=== PATIENT | male | born 1965 | race Caucasian/White ===

== ENCOUNTER 2018-09-18 08:30 | Inpatient (IN) ==
[~2018-09-18 08:30] MED LIST: Bupivacaine/Epinephrine PF Inj 0.5% 30 ML Vial ONE; Gelatin Size 100 Topical Foam ONE; Thrombin Topical Soln 5,000 UNIT Vial TOPICAL ONE; ceFAZolin 2 GM Premix Inj 2 GM/50 ML PIGGYBACK IV.SIG ONE
[2018-09-18] MEDS ORDERED: Chlorhexidine Gluconate 2% 1 Pack (2 Cloths) TOPICAL SCH (11:57)
[2018-09-18] MEDS ORDERED: Metoprolol Tartrate 25 MG Tablet PO SCH (11:57)
[2018-09-18] MEDS ORDERED: Vancomycin Inj 1,000 MG in Sodium Chlor 0.9% Inj 250 ML IV.SIG SCH (12:00)
[2018-09-18] MEDS ORDERED: Sodium Chlor 0.9% Inj 500 ML IV.SIG SCH (12:00)
[2018-09-18] MEDS ORDERED: SUFentanil Inj 250 MCG/5 ML Ampul ONE (12:06)
[2018-09-18] MEDS ORDERED: Propofol Inj 500 MG/50 ML Vial ONE (12:07)
[2018-09-18] MEDS ORDERED: fentaNYL Citrate Inj 250 MCG/5 ML Ampul ONE (12:32)
[2018-09-18] MEDS ORDERED: Dexmedetomidine Inj 200 MCG/2 ML Vial ONE (12:32)
[2018-09-18] MEDS ORDERED: HYDROmorphone PF Inj 2 MG/ML Vial ONE (12:32)
[2018-09-18] MEDS ORDERED: Artificial Tears Opth Oint 3.5 GM Tube ONE (12:32)
[2018-09-18] MEDS: Sod Chloride 0.9% Inj 1,000 ML IV.SIG SCH (12:34)
[2018-09-18] MEDS ORDERED: Bisacodyl 10 MG Supp RECTAL PRN (17:54)
[2018-09-18] MEDS ORDERED: Morphine Inj 4 MG/ML Vial IV.PUSH PRN (17:54)
[2018-09-18] MEDS ORDERED: Menthol 5.8 MG Lozenge BUCCAL PRN (17:54)
[2018-09-18] MEDS ORDERED: Naloxone Inj 0.4 MG/ML Vial IV.PUSH PRN (17:57)
--- NOTE | 2018-09-18 18:30 | P.OP ---
Preoperative Diagnosis: Lumbar degenerative disk disease with secondary spinal stenosis Postoperative Diagnosis: Lumbar degenerative disk disease with secondary spinal stenosis Date of procedure: 09/18/18 Procedure: L3-4, L4-L5 laminectomy, interbody arthrodhesis using PEEK cage and autologous bone graft, L3-4, L4-L5 instrumental fixation using transpedicular screws and rods, L3-4, L4-L5 posterolateral fusion using autologous bone graft and demineralized bone matrix. Microsurgical dissection Anesthesia: GETA Surgeon: Gio Donohue MD Pathology: none sent Operation and Findings: INDICATIONS FOR THE SURGICAL PROCEDURE Mr Resendez is a 53 year-old male who presented with intractable mechanical back pain and del evidence of L4 and L5 lower extremity radiculopathy. He failed maximum nonsurgical management including multiple modalities of conservative treatment as well as pain management interventions by an interventional pain specialist. A surgical decompression and arthrodhesis were indicated as a last resort. The [id number] details of the procedure, indications, alternatives, risks and potential complications were fully discussed with the patient. The patient fully understood. All the questions were answered. No guarantees were given. He voiced requesting the procedure and provided informed consents. He was offered the alternative of delaying the procedure and continuing with nonsurgical management. DETAILS OF THE SURGICAL PROCEDURE Prior to the procedure, the procedure, risks, and potential complications revisited with the patient. Placement of electrodes for intraoperative neurophysiological monitoring was completed. The patient was taken to the operative room, and following induction of general anesthesia, endotracheal intubation was performed. A De León catheter, bilateral JO ANN hose and sequential compression devices were placed and kept throughout the procedure. The patient was positioned prone, over a Johnny table over a bolsters. All pressure in the preoperative surgical holding room points were carefully padded with eggcrate and gel mattress. The eyes were tapped shut after ointment was applied by the anesthesiologist to prevent corneal abrasion. A Denisse hugger was placed over the expossed lower body to maintain control of the core body temperature. The electrophysiological team placed the needles and electrodes in their proper location and baseline SSEP's and motor evoked potentials were registered. The entrance to each pedicles was marked using a C arm. The lumbar region was prepped and draped in the usual sterile fashion. The surgical procedure was performed in several steps as follow: SURGICAL APPROACH Once the patient was positioned, a localizing cross-table lateral and AP x-ray was performed with a C-arm. Two paramedian small incisions were outlined on the skin approximately 3cm from the midline. The skin incisions were made with a # 10 blade. Small bleeders were controlled with the cautery. The dissection was then carried out into deeper planes and through the thoracolumbar fascia with a Bovie. The intermuscular septum was identified and the muscles were blunted dissected along the septum. The facets and transverse process of L3-4, L4,5 were exposed and the proper anatomical landmarks were identidied. A microsurgical self-retaining retractor was placed on the incision, and a localizing lateralizing cross-table x-ray was performed with an instrument underneath a lamina of the lumbar spine. INSTRUMENTAL FIXATION At this point in the procedure, placement of bilateral transpedicular screws was necessary for stabilization of the spine. Initially, the entry point for the screw was selected anatomically at the junction of the facet, with the transverse process, and the pars interarticularis at L3-4, L4,5. This was started with a Giamshetti needle, followed by the use of K wire. A tap was used to create the threads for the screws. Finally bilateral transpedicular screws were carefully placed bilaterally at L3, L4, and L5 under fluoroscopic visualization. An appropriate purchase was achieved with all screws. The position of each screw was assessed anatomically with an AP, lateral, oblique Xrays. An intraoperative scan view of the spine was then performed using the iso -centric c-arm. Each screw was then assessed electrophysiologically stimulating each screw with a nerve stimulator. SURGICAL DECOMPRESSION There was significant mass effect with compression of the neural structures. In order to relieve neural compression, it was necessary to perform a decompressive laminectomy, with decompression of the spinal canal and bilateral lateral recesses. Note that the scope of such decompression was significantly more extensive than the minimal exposure necessary to perform an interbody fusion, as there was extreme facet arthropathy with severe degeneration of the disk spaces and stenosis cause by the hyperthrophic joint facets. At this point of the procedure the operative microscope was draped in the usual sterile fashion and brought to the field. The rest of the surgical procedure was performed using microdissection technique with the exception of the closure. Under the operating microscope, a decompressive laminectomy was carried out at L3-4, L4,5 on the left side as follow: The laminae, base of the spinous processes and facets were carefully drilled exposing the ligamentum flavum. The facets were abnormal with severe spondylolisthesis and gross mechanical instability. A large disk protusion was compressing the neural structures and exiting nerve roots. A near complete facetectomy was necessary resulting in further mechanical instability. The ligamentum flavum appeared hypertrophic, resulting on mass effect on the dorsal surface of the neural structures. The superior free border of the ligamentum flavum was elevated with a ligament dissector and the ligamentum flavum was removed with a 3 and 4 mm Kerrison forceps. The ligament was very adherent to the dural sac and during the dissection, ans extreme care was taken during the dissection. The exiting nerve roots were identified, and a wide foraminotomy was performed with a Kerrison in their trajectory towards the neural foramen. Epidural veins located laterally to the dural sac were coagulated with the bipolar cautery, and then incised using microscissors. Gentle medial retraction of the dural sac allowed me to expose the disc space for the discectomy. Upon completion of the discectomy, an excellent decompression of the neural structures was achieved. Increased motion was noted thorough the procedure, which was consistent with mechanical instability at L3-4, L4,5. INTERBODY ARTHRODHESIS In order to correct the narrowing of the disk space and maintain distraction of the space, and to achieve a solid interbody fusion, it was necessary the insertion of an interbody device into the disk space. Otherwise, the disk space would collapse, compromising the result of the surgical procedure. At this point of the procedure, the annulus fibrosus of the disk was carefully coagulated with a bipolar cautery and incised using an 11 bladed knife. Then, a microdiscectomy was carried out in a standard fashion using a combination of straight and up-biting pituitary forceps. A reverse angle curette was applied underneath the posterior longitudinal ligament, and used to push the disk fragments into the disk space, so they can be safely removed with a pituitary forceps. Once the discectomy was completed, it was necessary to decorticate the endplates, in order to eliminate the cartilaginous endplate and to expose healthy bone appropriate to perform the interbody fusion. The endplates at L3-4 , L4,5 were then thoroughly decorticated using increasing size bone kaden and ring curets, eliminating the cartilaginous fragments from both, the superior and inferior endplates. A disk space distractor was applied to the pedicle screws and gentle distraction was applied. This maneuver was assisted by the use of a disk distractor. Increased motility was noted at the disk, which was consistent with instability due to facet arthropathy. Once a thorough preparation of the disk space was achieved, the disk space was irrigated with antibiotic solution, and the interbody fusion was performed by carefully impacting PPEK cages filled with autologous iliac crest bone graft. The use of several shoe impactors with different angulation, allowed me for an excellent, proper position of the interbody cages L3-4 and L4,5. A solid position of the cage with good purchase was achieved. The position of the cages were assessed anatomically with a probe and radiologically with the C-arm. POSTEROLATERAL FUSION The posterolateral fusion is a critical component to the procedure, to prevent future fatigue and failure of the instrumental fixation. Initially, the transverse processes of the vertebral bodies, lateral surface of the facets and the lateral gutters of the spine were carefully cleaned, eliminating all soft tissue and muscle attachments. The area was then irrigated with a large amount of antibiotic solution. Subsequently, the transverse processes, lateral surface of the facets, and lateral gutters of the spine were thoroughly decorticated using the TPS drill with a 5mm cutting jailene, exposing cancellous bone, in preparation for the posterolateral fusion. The incision was again irrigated with antibiotic solution. Then, the posterolateral fusion was then performed by carefully packing the lateral gutters of the spine at L3-4, L4,5 with autologous iliac crest bone combined with demineralized bone matrix. I packed as much bone as possible. COMPLETION OF THE INSTRUMENTATION AND CLOSURE The rods were brought to the field, applied to all the screws, and the screw caps were sequentially applied. Compression was performed between the pedicle screws, and final tightening of the screws was completed using a torque wrench. The incision was again thoroughly irrigated with several liters of antibiotic solution, and hemostasis secured with the bipolar cautery. A Valsalva Maneuver performed by the anesthesiologist failed to show any evidence of cerebrospinal fluid leak or bleeding. A 7 mm Johnny-Padron drain was left in the epidural space and externalized through a separate stab incision. The incision was then closed in planes. 0 Vicryl was used in an interrupted fashion to close the thoracolumbar fascia and the superficial fascia. The subcutaneous tissue was then approximated using 3-0 Vicryl in an interrupted fashion. Special care was taken to avoid space. The skin was then closed with 4-0 Vicryl in a running, subcuticular fashion. Dermabond was applied to the skin. Each plane of closure was irrigated with antibiotic solution. At the end of the procedure the sponge, needle and instrument counts were all correct. Estimated blood loss was 250-300 cc. No blood transfusion was given. The entire procedure was performed using continuous electrophysiological monitoring of the somatosensorial evoked potentials and EMG. The patient received prophylactic antibiotics. The patient was then extubated and transferred to the recovery room in stable condition.
[2018-09-18] MEDS ORDERED: fentaNYL Citrate Inj 100 MCG/2 ML Ampul ONE (18:52)
[2018-09-18] MEDS ORDERED: *morphine SULFATE 10 MG/ML PERIprocedure ONLY ONE (18:56)
[2018-09-18] MEDS ORDERED: *Meperidine Inj 25 MG/ML Vial PERIprocedural Use ONLY ONE (18:56)
[2018-09-18] MEDS: Sod Chloride 0.9% Inj 1,000 ML IV.CONT SCH (19:00)
[2018-09-18] MEDS: HYDROmorphone PCA Inj 6 MG/30 ML PCA.VIAL PCA PRN (19:30)
--- NOTE | 2018-09-18 19:45 | XR ---
EXAM DATE: 09/18/2018 7:05 PM EST AGE/SEX: 53 years / Male INDICATIONS: Lumbar fusion, L3-5. CLINICAL DATA: This is the patient's initial encounter. Patient reports that signs and symptoms have been present for 1 day and indicates a pain score of Nonresponsive. MEDICAL/SURGICAL HISTORY: Non-responsive. Non-responsive. COMPARISON: [facility] [place], [place] LUMBAR SPINE W/O CONTRAST, 06/01/2018. . FINDINGS: Anterior and lateral views in the operating room show fusion procedure with interbody and posterior i nstrumentation at L3/L4 and L4/L5. Alignment is within normal limits. No evidence of an acute complic ation. CONCLUSION: L3/L4 and L4/L5 fusion without acute abnormality demonstrated. Electronically signed by: Rene Jonas MD 09/18/2018 7:43 PM EST
[2018-09-18 19:47] LABS: Calcium 8.1 mg/dL (8.5-10.1); Carbon Dioxide 24.1 meq/L (21.0-32.0)
[2018-09-18] MEDS ORDERED: *morphine SULFATE 4 MG/ML PERIprocedure ONLY ONE (20:10)
[2018-09-18] MEDS: Senna/Docusate Sodium 8.6/50 MG Tablet PO SCH (22:21)
[2018-09-18] MEDS: Metoprolol Tartrate 25 MG Tablet PO SCH (22:21)
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
[2018-09-19] MEDS ORDERED: Dextrose 50% in Water 50 ML Vial IV.PUSH PRN (02:04)
[2018-09-19] MEDS: Sod Chloride 0.9% Inj 1,000 ML IV.CONT SCH ×2 (04:34→15:30)
--- NOTE | 2018-09-19 06:10 | XR ---
EXAM DATE: 09/19/2018 5:41 AM EST AGE/SEX: 53 years / Male INDICATIONS: Shortness of breath, possible respiratory disease CLINICAL DATA: This is the patient's initial encounter. Patient reports that signs and symptoms have been present for 1 day and indicates a pain score of 0/10. MEDICAL/SURGICAL HISTORY: None. None. COMPARISON: [facility] [place], CHEST 2V PA&LAT, 09/13/2018. . FINDINGS: There is focal infiltrate in the lateral left lung base. Right lung is grossly clear. Cardiac contour s are unchanged. CONCLUSION: Developing lateral left lung base infiltrate Electronically signed by: Rene Tom MD 09/19/2018 6:09 AM EST
[2018-09-19 06:51] LABS: Baso % (Auto) 0.1 % (0.0-2.0); Hematocrit 33.5 % (39.0-51.0); Hemoglobin 11.5 gm/dL (13.0-17.0); Lymph # (Auto) 1.2 th/mm3 (1.0-4.8); Lymph % (Auto) 8.3 % (9.0-44.0); Mean Corpuscular HGB Conc 34.5 % (32.0-36.0); Mean Corpuscular Hemoglobin 32.8 pg (27.0-34.0); Mean Platelet Volume 7.7 fL (7.0-11.0); Mono # (Auto) 0.8 th/mm3 (0.0-0.9); Mono % (Auto) 5.5 % (0.0-8.0); Neut # (Auto) 12.4 th/mm3 (1.8-7.7); Neut % (Auto) 86.1 % (16.0-70.0); Platelet Count 205 th/mm3 (150-450); Red Blood Count 3.52 mil/mm3 (4.50-5.90); Red Cell Distribution Width 13.3 % (11.6-17.2); White Blood Count 14.4 th/mm3 (4.0-11.0)
[2018-09-19] MEDS: HYDROmorphone PCA Inj 6 MG/30 ML PCA.VIAL PCA PRN ×3 (07:51→21:06)
[2018-09-19] MEDS: ceFAZolin 2 GM Premix Inj 2 GM/50 ML PIGGYBACK IV.SIG SCH ×4 (07:52→17:01)
[2018-09-19] MEDS: Gabapentin 300 MG Capsule PO SCH ×4 (08:05→17:01)
[2018-09-19] MEDS: Metoprolol Tartrate 25 MG Tablet PO SCH ×2 (08:20→21:06)
[2018-09-19] MEDS: Senna/Docusate Sodium 8.6/50 MG Tablet PO SCH ×2 (08:21→20:37)
[2018-09-19] MEDS: Lisinopril 20 MG Tablet PO SCH (08:38)
[2018-09-19] MEDS ORDERED: Non-Formulary Drug (Lisinopril-Hydrochlorothiazide [Lisinopril-Hydrochlorothiazide] 1 TAB) PO SCH (09:00)
[2018-09-19] MEDS ORDERED: ceFAZolin 2 GM Premix Inj 2 GM/50 ML PIGGYBACK IV.SIG SCH ×2 (09:15→10:00)
[2018-09-19] MEDS: Insulin NovoLOG Aspart Correctional Sugar Inj SQ SCH ×4 (09:20→20:38)
[2018-09-19] MEDS: Ezetimibe 10 MG Tablet PO SCH (09:21)
[2018-09-19] MEDS: Lisdexamfetamine 30 MG Capsule PO SCH (09:23)
--- NOTE | 2018-09-19 12:10 | P.PNIM ---
Subjective Interval history: Pain controlled with seen. No new complaints. No nausea. Physical Exam Vital signs: Vital Signs 09/18/18 12:47 09/18/18 18:15 09/18/18 18:30 Temperature 99 F 97.6 F Pulse Rate 103 H 78 76 Respiratory Rate 16 24 15 Blood Pressure 130/88 130/85 110/67 Pulse Oximetry 96 93 L 90 L 09/18/18 18:45 09/18/18 19:00 09/18/18 19:15 Temperature Pulse Rate 77 82 85 Respiratory Rate 14 12 12 Blood Pressure 104/61 106/62 105/50 L Pulse Oximetry 87 L 92 L 99 09/18/18 19:30 09/18/18 19:45 09/18/18 20:00 Temperature Pulse Rate 80 92 H 81 Respiratory Rate 12 13 10 L Blood Pressure 94/52 L 98/57 L 98/56 L Pulse Oximetry 99 99 100 09/18/18 20:15 09/18/18 20:30 09/18/18 20:57 Temperature 98.3 F Pulse Rate 83 76 69 Respiratory Rate 9 L 13 15 Blood Pressure 88/61 L 88/60 L Pulse Oximetry 100 100 09/18/18 21:00 09/18/18 21:03 09/18/18 21:30 Temperature 97.6 F Pulse Rate 68 69 79 Respiratory Rate 19 14 17 Blood Pressure 101/66 99/67 L Pulse Oximetry 100 100 09/18/18 22:00 09/18/18 22:06 09/18/18 22:30 Temperature Pulse Rate 68 73 Respiratory Rate 20 11 L Blood Pressure 94/58 L 92/53 L Pulse Oximetry 98 100 97 09/18/18 23:00 09/18/18 23:30 09/19/18 00:00 Temperature 97.7 F Pulse Rate 62 76 79 Respiratory Rate 9 L 30 H 21 Blood Pressure 110/71 100/60 102/58 L Pulse Oximetry 99 95 100 09/19/18 00:30 09/19/18 00:34 09/19/18 01:00 Temperature Pulse Rate 85 77 82 Respiratory Rate 24 19 18 Blood Pressure 90/50 L 96/52 L 105/58 L Pulse Oximetry 98 99 100 09/19/18 01:05 09/19/18 01:30 09/19/18 02:00 Temperature Pulse Rate 96 H 77 Respiratory Rate 28 H 9 L Blood Pressure 97/53 L 99/54 L Pulse Oximetry 98 99 97 09/19/18 02:30 09/19/18 03:00 09/19/18 03:30 Temperature Pulse Rate 74 93 H 92 H Respiratory Rate 10 L 20 33 H Blood Pressure 94/52 L 114/69 107/53 L Pulse Oximetry 96 97 99 09/19/18 04:00 09/19/18 04:36 09/19/18 05:00 Temperature Pulse Rate 101 H 87 90 Respiratory Rate 23 16 33 H Blood Pressure 139/63 89/53 L 99/55 L Pulse Oximetry 96 98 98 09/19/18 05:30 09/19/18 06:00 09/19/18 06:30 Temperature Pulse Rate 94 H 101 H 87 Respiratory Rate 27 H 39 H 11 L Blood Pressure 101/55 L 109/67 100/60 Pulse Oximetry 96 98 95 09/19/18 06:43 09/19/18 07:00 09/19/18 08:19 Temperature Pulse Rate 96 H 112 H Respiratory Rate 19 31 H Blood Pressure 103/61 114/68 Pulse Oximetry 97 97 Intake & Output 09/18/18 09/19/18 09/19/18 18:59 06:59 18:59 Intake Total 2850 / 2850 1450 / 1450 250 / 250 Output Total 500 / 500 1055 / 1055 Balance 2350 / 2350 395 / 395 250 / 250 Weight 96.6 kg Intake: IV 50 / 50 950 / 950 250 / 250 NS Inj 1,000 ML @ 100 mls/hr IV 950 / 950 .CONT .Q10H MICHELLE Rx#:[id number] Vancomycin Inj 1,000 MG In NS 250 / 250 Inj 250 ML @ 250 mls/hr IV.SIG LIBRARY CUSTOMER SERVICE CLERK MICHELLE Rx#:[id number] Oral 500 / 500 Anesthesia Amount 2800 / 2800 Output: Estimated Blood Loss 200 / 200 Urine Amount (Catheter) 300 / 300 800 / 800 Indwelling Urethral Catheter 300 / 300 800 / 800 Wound Drainage 255 / 255 # 1 Medial Back Marbin 255 / 255 Other: Weight On Admission 96.6 kg Narrative: GENERAL: NAD, A&Ox3 HEAD: Normocephalic. NECK: Supple, trachea midline. No lymphadenopathy. EYES: No scleral icterus. No injection or drainage. CARDIOVASCULAR: Regular rate and rhythm without murmurs, gallops, or rubs. RESPIRATORY: Breath sounds equal bilaterally. No accessory muscle use. GASTROINTESTINAL: Abdomen soft, non-tender, nondistended. MUSCULOSKELETAL: No cyanosis, or edema. Surgical site bandage. Drain in place. SKIN: Warm and dry. NEURO: No focal neurological deficits. - Urinary Catheter Management Indwelling Urethral Catheter Cath placed during this visit: yes Reason for continuing: Hourly intake/output Insertion date: 09/18/18 Insertion time: 13:30 Results - Labs CBC & Chem 7: 09/19/18 05:51 09/18/18 18:45 Laboratory Results - last 24 hr 09/18/18 09/18/18 09/18/18 12:20 18:45 21:00 WBC RBC Hgb Hct MCV MCH MCHC RDW Plt Count MPV Neut % (Auto) Lymph % (Auto) [place] % (Auto) Eos % (Auto) Baso % (Auto) Neut # (Auto) Lymph # (Auto) [place] # (Auto) Eos # (Auto) Baso # (Auto) WBC Differential Differential Comment Sodium 138 Potassium 4.0 Chloride 105 Carbon Dioxide 24.1 Anion Gap 9 BUN 17 Creatinine 1.05 Estimated GFR 73 L POC Glucose Random Glucose 177 H Calcium 8.1 L Nasal Screen MRSA (PCR) Not detected Blood Type O Positive Blood Type Recheck Required Antibody Screen Negative 09/19/18 09/19/18 05:51 09:20 WBC 14.4 H RBC 3.52 L Hgb 11.5 L Hct 33.5 L MCV 95.0 MCH 32.8 MCHC 34.5 RDW 13.3 Plt Count 205 MPV 7.7 Neut % (Auto) 86.1 H Lymph % (Auto) 8.3 L [place] % (Auto) 5.5 Eos % (Auto) 0.0 Baso % (Auto) 0.1 Neut # (Auto) 12.4 H Lymph # (Auto) 1.2 [place] # (Auto) 0.8 Eos # (Auto) 0.0 Baso # (Auto) 0.0 WBC Differential . Differential Comment Auto diff final Sodium Potassium Chloride Carbon Dioxide Anion Gap BUN Creatinine Estimated GFR POC Glucose 148 H Random Glucose Calcium Nasal Screen MRSA (PCR) Blood Type Blood Type Recheck Antibody Screen - Imaging Impressions Lumbar Spine X-Ray 09/18/18 00:00 CONCLUSION: L3/L4 and L4/L5 fusion without acute abnormality demonstrated. Chest X-Ray 09/19/18 00:00 CONCLUSION: Developing lateral left lung base infiltrate Assessment and Plan - Plan Lumbar stenosis s/p L3-L5 laminectomy and fusion 09/[address] Donohue Activity per discretion of neurosurgeon. Continue pain treatments as needed. Continue physical therapy Chronic pain Parasomnia Chronic neuropathy Continue gabapentin 300 mg p.o. 3 times daily ADHD Continue Vyvanse 60 mg po daily Suspected obstructive sleep apnea Bipap at night Weight loss encouraged Follow-up with pulmonology as an outpatient for outpatient sleep study. Hypertension Continue metoprolol 25 mg p.o. twice daily. Continue lisinopril 20 mg p.o. daily. Continue HCTZ 12.5 mg p.o. daily Hyperlipidemia Continue pravastatin 40 mg p.o. daily Continue Zetia 10 mg p.o. daily Obesity Regular diet Acute hyperglycemia Likely related to steroid Follow blood sugars Insulin sliding scale DVT prophylaxis SCDs
[2018-09-19] MEDS: Sod Chloride 0.9% Inj 1,000 ML IV.SIG SCH (12:45)
--- NOTE | 2018-09-19 16:13 | MB ---
cc: Meghan Christianson MD DATE: 09/19/2018 REASON FOR CONSULTATION: Sleep apnea. HISTORY OF PRESENT ILLNESS: The patient is a 53-year-old male who was admitted for laminectomy, L3-L5. Did surgery and did quite well postoperatively; however, noted to have apneic episodes and snores very loudly while sleeping, which the patient has confirmed he does at home where his spouse had to leave and sleep in a separate room because of the loud snoring. Snoring stopped. The patient denies a history of shortness of breath. He does, however, state he has excessive movements during sleep. He has no episodes of cataplexy or excessive dreaming. PAST MEDICAL HISTORY: Degenerative disk disease, spinal stenosis, hypertension and hyperlipidemia. FAMILY HISTORY: Mother has history of lung cancer. Father has COPD. SOCIAL HISTORY: Does not smoke, does not drink. No TB, no industrial exposure. Does not use drugs. MEDICATIONS: 1. Zetia. 2. Neurontin. 3. Microzide. 4. Vancomycin. 5. Cefazolin 6. Bentyl lozenge as needed. 7. Lopressor. 8. Pain medication. 9. Pravastatin. 10. Pantoprazole. ALLERGIES: NONE KNOWN TO MEDICATION. REVIEW OF SYSTEMS: A 12-point review of systems as per HPI and past history. Otherwise negative. PHYSICAL EXAMINATION: VITAL SIGNS: Temperature 98, pulse 80, respiratory rate 20, blood pressure 130/80, oxygen saturation 93% on room air. HEENT: Unremarkable. Eyes without icterus. NECK: Without adenopathy or thyroid enlargement. CHEST: A few rhonchi at bases. Cough at bases. CARDIAC: PMI not appreciated. S1, S2 audible. No murmur. No rub. ABDOMEN: Lax, bowel sounds audible. EXTREMITIES: No clubbing, cyanosis, or edema. SKIN: Normal. No lymphadenopathy. LABORATORY DATA: White count 14,000, hemoglobin 11, hematocrit 33. Sodium 138, potassium 4.0, BUN 17, creatinine 1.0. IMPRESSION: 1. Sleep disordered breathing, obstructive sleep apnea suspect. 2. Status post laminectomy. 3. Chronic pain. 4. Hypertension. 5. Hyperlipidemia. 6. Obesity. PLAN: The patient is using BiPAP therapy while in the hospital at the moment. This will be continued. Meanwhile, we will arrange for outpatient polysomnographic evaluation and CPAP therapy. Baseline thyroid function will be obtained. I do thank you for asking me to partake in Mr. Mahajan's care. Meghan Christianson MD WWW/eli , 03:49 PM , 03:58 PM
--- NOTE | 2018-09-19 16:36 | P.PNNS ---
Subjective Interval history: pt transferred to [facility] from PACU following episodes of sleep apnea and desaturations. His reported that she has observed episodes of sleep apnea at home. He had told nursing he used his mother's CPAP machine before. pt seen this morning, vitals stable. sats good. pain controlled. Physical Exam Vital signs: Vital Signs 09/18/18 18:15 09/18/18 18:30 09/18/18 18:45 Temperature 97.6 F Pulse Rate 78 76 77 Respiratory Rate 24 15 14 Blood Pressure 130/85 110/67 104/61 Pulse Oximetry 93 L 90 L 87 L 09/18/18 19:00 09/18/18 19:15 09/18/18 19:30 Temperature Pulse Rate 82 85 80 Respiratory Rate 12 12 12 Blood Pressure 106/62 105/50 L 94/52 L Pulse Oximetry 92 L 99 99 09/18/18 19:45 09/18/18 20:00 09/18/18 20:15 Temperature Pulse Rate 92 H 81 83 Respiratory Rate 13 10 L 9 L Blood Pressure 98/57 L 98/56 L 88/61 L Pulse Oximetry 99 100 100 09/18/18 20:30 09/18/18 20:57 09/18/18 21:00 Temperature 98.3 F Pulse Rate 76 69 68 Respiratory Rate 13 15 19 Blood Pressure 88/60 L Pulse Oximetry 100 09/18/18 21:03 09/18/18 21:30 09/18/18 22:00 Temperature 97.6 F Pulse Rate 69 79 68 Respiratory Rate 14 17 20 Blood Pressure 101/66 99/67 L 94/58 L Pulse Oximetry 100 100 98 09/18/18 22:06 09/18/18 22:30 09/18/18 23:00 Temperature Pulse Rate 73 62 Respiratory Rate 11 L 9 L Blood Pressure 92/53 L 110/71 Pulse Oximetry 100 97 99 09/18/18 23:30 09/19/18 00:00 09/19/18 00:30 Temperature 97.7 F Pulse Rate 76 79 85 Respiratory Rate 30 H 21 24 Blood Pressure 100/60 102/58 L 90/50 L Pulse Oximetry 95 100 98 09/19/18 00:34 09/19/18 01:00 09/19/18 01:05 Temperature Pulse Rate 77 82 Respiratory Rate 19 18 Blood Pressure 96/52 L 105/58 L Pulse Oximetry 99 100 98 09/19/18 01:30 09/19/18 02:00 09/19/18 02:30 Temperature Pulse Rate 96 H 77 74 Respiratory Rate 28 H 9 L 10 L Blood Pressure 97/53 L 99/54 L 94/52 L Pulse Oximetry 99 97 96 09/19/18 03:00 09/19/18 03:30 09/19/18 04:00 Temperature Pulse Rate 93 H 92 H 101 H Respiratory Rate 20 33 H 23 Blood Pressure 114/69 107/53 L 139/63 Pulse Oximetry 97 99 96 09/19/18 04:36 09/19/18 05:00 09/19/18 05:30 Temperature Pulse Rate 87 90 94 H Respiratory Rate 16 33 H 27 H Blood Pressure 89/53 L 99/55 L 101/55 L Pulse Oximetry 98 98 96 09/19/18 06:00 09/19/18 06:30 09/19/18 06:43 Temperature Pulse Rate 101 H 87 96 H Respiratory Rate 39 H 11 L 19 Blood Pressure 109/67 100/60 103/61 Pulse Oximetry 98 95 97 09/19/18 07:00 09/19/18 07:30 09/19/18 08:00 Temperature 99.1 F Pulse Rate 112 H 97 H 103 H Respiratory Rate 31 H 28 H 31 H Blood Pressure 114/68 106/56 L 106/56 L Pulse Oximetry 96 09/19/18 08:19 09/19/18 08:30 09/19/18 09:00 Temperature Pulse Rate 96 H 85 Respiratory Rate 22 10 L Blood Pressure 111/53 L 117/61 Pulse Oximetry 97 96 95 09/19/18 09:30 09/19/18 10:00 09/19/18 10:30 Temperature Pulse Rate 95 H 94 H 101 H Respiratory Rate 25 H 20 18 Blood Pressure 120/56 L 112/64 113/70 Pulse Oximetry 96 93 L 94 L 09/19/18 11:00 09/19/18 11:30 09/19/18 12:00 Temperature 99.4 F Pulse Rate 105 H 95 H 92 H Respiratory Rate 21 28 H 20 Blood Pressure 113/63 114/57 L 120/60 Pulse Oximetry 96 96 95 09/19/18 16:00 Temperature Pulse Rate 113 H Respiratory Rate 31 H Blood Pressure 135/78 Pulse Oximetry 95 Intake & Output 1109/19/18 09/19/18 18:59 06:59 18:59 Intake Total 2850 / 2850 1450 / 1450 2300 / 2300 Output Total 500 / 500 1055 / 1055 Balance 2350 / 2350 395 / 395 2300 / 2300 Weight 96.6 kg Intake: IV 50 / 50 950 / 950 2300 / 2300 NS Inj 1,000 ML @ 100 mls/hr IV 950 / 950 1000 / 1000 .CONT .Q10H MICHELLE Rx#:[id number] LR 1000 mL Inj 1,000 ML @ 30 1000 / 1000 mls/hr IV.SIG .Q24H MICHELLE Rx#: [id number] Vancomycin Inj 1,000 MG In NS 250 / 250 Inj 250 ML @ 250 mls/hr IV.SIG CHEMICAL UNIT OPERATOR MICHELLE Rx#:[id number] Ancef 2 GM Premix Inj 2 gm In 50 / 50 50 ml @ 100 mls/hr IV.SIG Q8H MICHELLE Rx#:[id number] Oral 500 / 500 Anesthesia Amount 2800 / 2800 Output: Estimated Blood Loss 200 / 200 Urine Amount (Catheter) 300 / 300 800 / 800 Indwelling Urethral Catheter 300 / 300 800 / 800 Wound Drainage 255 / 255 # 1 Medial Back Marbin 255 / 255 Other: Weight On Admission 96.6 kg Narrative: awake, alert vitals stable, o2 sats 99 moving all four extremities well SETH drain in place moderate serosanguineous drainage - Urinary Catheter Management Indwelling Urethral Catheter Cath placed during this visit: yes Reason for continuing: Hourly intake/output Insertion date: 09/18/18 Insertion time: 13:30 Assessment and Plan - Plan POD 1 L3-4, L4-L5 laminectomy, interbody arthrodhesis using PEEK cage and autologous bone graft, L3-4, L4-L5 instrumental fixation using transpedicular screws and rods, L3-4, L4-L5 posterolateral fusion using autologous bone graft and demineralized bone matrix. Microsurgical dissection (09/18/18) appreciate critical care assistance dc scales catheter cont STATE EPIDEMIOLOGIST for postoperative pain control Dr. Donohue request pulmonary eval for sleep apnea SCDs and TEDs for dvt proph protonix for GI prophylaxis cont SETH draining, monitor output TLSO when out of bed, PT, mobilize today - up in chair
[2018-09-19 16:57] LABS: Hemoglobin A1c 6.2 % (4.3-6.0)
[2018-09-20] MEDS: ceFAZolin 2 GM Premix Inj 2 GM/50 ML PIGGYBACK IV.SIG SCH (01:22)
[2018-09-20] MEDS: Sod Chloride 0.9% Inj 1,000 ML IV.CONT SCH ×3 (01:23→10:01)
[2018-09-20] MEDS: HYDROmorphone PCA Inj 6 MG/30 ML PCA.VIAL PCA PRN ×2 (05:57→06:19)
[2018-09-20] MEDS: Senna/Docusate Sodium 8.6/50 MG Tablet PO SCH ×2 (08:23→21:36)
[2018-09-20] MEDS: Ezetimibe 10 MG Tablet PO SCH (08:23)
[2018-09-20] MEDS: Gabapentin 300 MG Capsule PO SCH ×3 (08:23→19:03)
[2018-09-20] MEDS: Insulin NovoLOG Aspart Correctional Sugar Inj SQ SCH ×3 (08:24→16:56)
[2018-09-20] MEDS: Metoprolol Tartrate 25 MG Tablet PO SCH ×2 (08:29→21:38)
[2018-09-20] MEDS: Lisdexamfetamine 30 MG Capsule PO SCH (08:29)
[2018-09-20] MEDS: Lisinopril 20 MG Tablet PO SCH (08:29)
--- NOTE | 2018-09-20 09:13 | P.PNIM ---
Subjective Interval history: Patient still has pain, but says his pain is improved compared to previous day. No acute changes overnight. Patient has been out of bed. Physical Exam Vital signs: Vital Signs 09/19/18 09:30 09/19/18 10:00 09/19/18 10:30 Temperature Pulse Rate 95 H 94 H 101 H Respiratory Rate 25 H 20 18 Blood Pressure 120/56 L 112/64 113/70 Pulse Oximetry 96 93 L 94 L 09/19/18 11:00 09/19/18 11:30 09/19/18 12:00 Temperature 99.4 F Pulse Rate 105 H 95 H 92 H Respiratory Rate 21 28 H 20 Blood Pressure 113/63 114/57 L 120/60 Pulse Oximetry 96 96 95 09/19/18 16:00 09/19/18 20:38 09/19/18 20:39 Temperature 99.0 F Pulse Rate 113 H 100 H Respiratory Rate 31 H 20 20 Blood Pressure 135/78 113/61 Pulse Oximetry 95 96 09/19/18 21:36 09/19/18 23:20 09/20/18 00:00 Temperature 98.2 F Pulse Rate 105 H Respiratory Rate 20 20 18 Blood Pressure 123/67 Pulse Oximetry 98 09/20/18 03:05 09/20/18 04:00 09/20/18 04:31 Temperature 98.1 F Pulse Rate 88 Respiratory Rate 20 18 18 Blood Pressure 100/51 L Pulse Oximetry 100 09/20/18 08:00 Temperature 97.8 F Pulse Rate 94 H Respiratory Rate 20 Blood Pressure 114/65 Pulse Oximetry 96 Intake & Output 09/19/18 09/20/18 09/20/18 18:59 06:59 18:59 Intake Total 2500 / 2500 100 / 100 Output Total 695 / 695 1485 / 1485 Balance 1805 / 1805 -1385 / -1385 Intake: IV 2300 / 2300 100 / 100 NS Inj 1,000 ML @ 100 mls/hr IV 1000 / 1000 .CONT .Q10H MICHELLE Rx#:[id number] LR 1000 mL Inj 1,000 ML @ 30 1000 / 1000 mls/hr IV.SIG .Q24H MICHELLE Rx#: [id number] Vancomycin Inj 1,000 MG In NS 250 / 250 Inj 250 ML @ 250 mls/hr IV.SIG FOOD TECHNICIAN MICHELLE Rx#:[id number] Ancef 2 GM Premix Inj 2 gm In 50 / 50 100 / 100 50 ml @ 100 mls/hr IV.SIG Q8H MICHELLE Rx#:[id number] Oral 200 / 200 Output: Urine 325 / 325 1275 / 1275 Stool 0 / 0 Urine Amount (Catheter) 300 / 300 Indwelling Urethral Catheter 300 / 300 Wound Drainage 70 / 70 210 / 210 # 1 Medial Back Marbin 70 / 70 210 / 210 Other: Date of Last Bowel Movement 09/18/18 09/18/18 Narrative: GENERAL: NAD, A&Ox3 HEAD: Normocephalic. NECK: Supple, trachea midline. No lymphadenopathy. EYES: No scleral icterus. No injection or drainage. CARDIOVASCULAR: Regular rate and rhythm without murmurs, gallops, or rubs. RESPIRATORY: Breath sounds equal bilaterally. No accessory muscle use. GASTROINTESTINAL: Abdomen soft, non-tender, nondistended. MUSCULOSKELETAL: No cyanosis, or edema. SETH drain is in place at back. SKIN: Warm and dry. NEURO: No focal neurological deficits. - Urinary Catheter Management Indwelling Urethral Catheter Cath placed during this visit: yes Reason for continuing: Hourly intake/output Insertion date: 09/18/18 Insertion time: 13:30 Results - Labs CBC & Chem 7: 09/19/18 05:51 09/18/18 18:45 Laboratory Results - last 24 hr 09/18/18 09/19/18 09/19/18 18:45 05:51 09:20 POC Glucose 148 H Hemoglobin A1c 6.2 H TSH 0.620 09/19/18 09/19/18 09/19/18 12:44 16:39 20:07 POC Glucose 160 H 188 H 174 H Hemoglobin A1c TSH 09/20/18 07:22 POC Glucose 153 H Hemoglobin A1c TSH Assessment and Plan - Plan 53-year-old male admitted secondary to lumbar stenosis, for laminectomy and fusion Healing well as far. Continue pain management. Continue physical therapy. Monitor for improvement. Lumbar stenosis s/p L3-L5 laminectomy and fusion 09/[address] Donohue Activity per discretion of neurosurgeon. Continue pain treatments as needed. Continue physical therapy Chronic pain Parasomnia Chronic neuropathy Continue gabapentin 300 mg p.o. 3 times daily ADHD Continue Vyvanse 60 mg po daily Suspected obstructive sleep apnea Bipap at night Weight loss encouraged Follow-up with pulmonology as an outpatient for outpatient sleep study. Hypertension Continue metoprolol 25 mg p.o. twice daily. Continue lisinopril 20 mg p.o. daily. Continue HCTZ 12.5 mg p.o. daily Hyperlipidemia Continue pravastatin 40 mg p.o. daily Continue Zetia 10 mg p.o. daily Obesity Regular diet Acute hyperglycemia Likely related to steroid Follow blood sugars Insulin sliding scale DVT prophylaxis SCDs
--- NOTE | 2018-09-20 10:39 | P.PN ---
Subjective Interval history: ALERT NAD Physical Exam Vital signs: Vital Signs 09/19/18 10:00 09/19/18 10:30 09/19/18 11:00 Temperature Pulse Rate 94 H 101 H 105 H Respiratory Rate 20 18 21 Blood Pressure 112/64 113/70 113/63 Pulse Oximetry 93 L 94 L 96 09/19/18 11:30 09/19/18 12:00 09/19/18 16:00 Temperature 99.4 F Pulse Rate 95 H 92 H 113 H Respiratory Rate 28 H 20 31 H Blood Pressure 114/57 L 120/60 135/78 Pulse Oximetry 96 95 95 09/19/18 20:38 09/19/18 20:39 09/19/18 21:36 Temperature 99.0 F Pulse Rate 100 H Respiratory Rate 20 20 20 Blood Pressure 113/61 Pulse Oximetry 96 09/19/18 23:20 09/20/18 00:00 09/20/18 03:05 Temperature 98.2 F Pulse Rate 105 H Respiratory Rate 20 18 20 Blood Pressure 123/67 Pulse Oximetry 98 09/20/18 04:00 09/20/18 04:31 09/20/18 08:00 Temperature 98.1 F 97.8 F Pulse Rate 88 94 H Respiratory Rate 18 18 20 Blood Pressure 100/51 L 114/65 Pulse Oximetry 100 96 Intake & Output 09/19/18 09/20/18 09/20/18 18:59 06:59 18:59 Intake Total 2500 / 2500 100 / 100 Output Total 695 / 695 1485 / 1485 Balance 1805 / 1805 -1385 / -1385 Intake: IV 2300 / 2300 100 / 100 NS Inj 1,000 ML @ 100 mls/hr IV 1000 / 1000 .CONT .Q10H MICHELLE Rx#:[id number] LR 1000 mL Inj 1,000 ML @ 30 1000 / 1000 mls/hr IV.SIG .Q24H MICHELLE Rx#: [id number] Vancomycin Inj 1,000 MG In NS 250 / 250 Inj 250 ML @ 250 mls/hr IV.SIG PROGRAM MANAGEMENT INTERN MICHELLE Rx#:[id number] Ancef 2 GM Premix Inj 2 gm In 50 / 50 100 / 100 50 ml @ 100 mls/hr IV.SIG Q8H MICHELLE Rx#:[id number] Oral 200 / 200 Output: Urine 325 / 325 1275 / 1275 Stool 0 / 0 Urine Amount (Catheter) 300 / 300 Indwelling Urethral Catheter 300 / 300 Wound Drainage 70 / 70 210 / 210 # 1 Medial Back Marbin 70 / 70 210 / 210 Other: Date of Last Bowel Movement 09/18/18 09/18/18 Narrative: GENERAL: NAD, A&Ox3 HEAD: Normocephalic. NECK: Supple, trachea midline. No lymphadenopathy. EYES: No scleral icterus. No injection or drainage. CARDIOVASCULAR: Regular rate and rhythm without murmurs, gallops, or rubs. RESPIRATORY: Breath sounds equal bilaterally. No accessory muscle use. GASTROINTESTINAL: Abdomen soft, non-tender, nondistended. MUSCULOSKELETAL: No cyanosis, or edema. SETH drain is in place at back. SKIN: Warm and dry. NEURO: No focal neurological deficits. - Urinary Catheter Management Indwelling Urethral Catheter Cath placed during this visit: yes Reason for continuing: Hourly intake/output Insertion date: 09/18/18 Insertion time: 13:30 Results - Labs CBC & Chem 7: 09/19/18 05:51 09/18/18 18:45 Laboratory Results - last 24 hr 09/18/18 09/19/18 09/19/18 18:45 05:51 12:44 POC Glucose 160 H Hemoglobin A1c 6.2 H TSH 0.620 09/19/18 09/19/18 09/20/18 16:39 20:07 07:22 POC Glucose 188 H 174 H 153 H Hemoglobin A1c TSH Assessment and Plan - Plan SDB , CARMELO SUSPECT HTN HLD POST LAMINECTOMY PLAN NPSG POST D/C CHECK PFT TSH
[2018-09-20] MEDS: Sod Chloride 0.9% Inj 1,000 ML IV.SIG SCH (12:13)
--- NOTE | 2018-09-20 14:13 | P.PNNS ---
Subjective Interval history: sitting up in chair, moderate pain Physical Exam Vital signs: Vital Signs 09/19/18 16:00 09/19/18 20:38 09/19/18 20:39 Temperature 99.0 F Pulse Rate 113 H 100 H Respiratory Rate 31 H 20 20 Blood Pressure 135/78 113/61 Pulse Oximetry 95 96 09/19/18 21:36 09/19/18 23:20 09/20/18 00:00 Temperature 98.2 F Pulse Rate 105 H Respiratory Rate 20 20 18 Blood Pressure 123/67 Pulse Oximetry 98 09/20/18 03:05 09/20/18 04:00 09/20/18 04:31 Temperature 98.1 F Pulse Rate 88 Respiratory Rate 20 18 18 Blood Pressure 100/51 L Pulse Oximetry 100 09/20/18 08:00 09/20/18 10:49 09/20/18 11:53 Temperature 97.8 F Pulse Rate 94 H Respiratory Rate 20 18 18 Blood Pressure 114/65 Pulse Oximetry 96 09/20/18 12:00 Temperature 98.2 F Pulse Rate 101 H Respiratory Rate 20 Blood Pressure 125/83 Pulse Oximetry 98 Intake & Output 09/19/18 09/20/18 09/20/18 18:59 06:59 18:59 Intake Total 2500 / 2500 100 / 100 Output Total 695 / 695 1485 / 1485 Balance 1805 / 1805 -1385 / -1385 Intake: IV 2300 / 2300 100 / 100 NS Inj 1,000 ML @ 100 mls/hr IV 1000 / 1000 .CONT .Q10H MICHELLE Rx#:[id number] LR 1000 mL Inj 1,000 ML @ 30 1000 / 1000 mls/hr IV.SIG .Q24H MICHELLE Rx#: [id number] Vancomycin Inj 1,000 MG In NS 250 / 250 Inj 250 ML @ 250 mls/hr IV.SIG SYSTEMS DEVELOPER MICHELLE Rx#:[id number] Ancef 2 GM Premix Inj 2 gm In 50 / 50 100 / 100 50 ml @ 100 mls/hr IV.SIG Q8H MICHELLE Rx#:[id number] Oral 200 / 200 Output: Urine 325 / 325 1275 / 1275 Stool 0 / 0 Urine Amount (Catheter) 300 / 300 Indwelling Urethral Catheter 300 / 300 Wound Drainage 70 / 70 210 / 210 # 1 Medial Back Marbin 70 / 70 210 / 210 Other: Date of Last Bowel Movement 09/18/18 09/18/18 Narrative: Awake, alert sitting up in chair with TLSO brace SETH drain with moderate serosanguineous drainage moving major muscle groups of LEs well - Urinary Catheter Management Indwelling Urethral Catheter Cath placed during this visit: yes Reason for continuing: Hourly intake/output Insertion date: 09/18/18 Insertion time: 13:30 Assessment and Plan - Plan POD 2 L3-4, L4-L5 laminectomy, interbody arthrodhesis using PEEK cage and autologous bone graft, L3-4, L4-L5 instrumental fixation using transpedicular screws and rods, L3-4, L4-L5 posterolateral fusion using autologous bone graft and demineralized bone matrix. Microsurgical dissection (09/18/18) cont EMPLOYMENT ASSISTANT for postoperative pain control, add Flexeril, cont Lortab prn, cont Neurontin Dr. Donohue request pulmonary eval for sleep apnea, pulmonary eval appreciated SCDs and TEDs for dvt proph protonix for GI prophylaxis cont SETH draining, monitor output TLSO, PT, mobilize
[2018-09-21] MEDS: Sod Chloride 0.9% Inj 1,000 ML IV.CONT SCH (00:14)
[2018-09-21] MEDS: Insulin NovoLOG Aspart Correctional Sugar Inj SQ SCH ×4 (00:14→21:23)
[2018-09-21] MEDS: HYDROmorphone PCA Inj 6 MG/30 ML PCA.VIAL PCA PRN (02:07)
[2018-09-21 05:37] LABS: Baso % (Auto) 0.5 % (0.0-2.0); Eos # (Auto) 0.2 th/mm3 (0.0-0.4); Eos % (Auto) 2.8 % (0.0-4.0); Hematocrit 29.5 % (39.0-51.0); Hemoglobin 10.3 gm/dL (13.0-17.0); Lymph # (Auto) 2.2 th/mm3 (1.0-4.8); Lymph % (Auto) 25.3 % (9.0-44.0); Mean Corpuscular HGB Conc 34.8 % (32.0-36.0); Mean Corpuscular Hemoglobin 33.5 pg (27.0-34.0); Mean Corpuscular Volume 96.1 fL (80.0-100.0); Mean Platelet Volume 7.5 fL (7.0-11.0); Mono # (Auto) 0.8 th/mm3 (0.0-0.9); Mono % (Auto) 9.5 % (0.0-8.0); Neut # (Auto) 5.4 th/mm3 (1.8-7.7); Neut % (Auto) 61.9 % (16.0-70.0); Platelet Count 190 th/mm3 (150-450); Red Blood Count 3.08 mil/mm3 (4.50-5.90); Red Cell Distribution Width 13.2 % (11.6-17.2); White Blood Count 8.7 th/mm3 (4.0-11.0)
[2018-09-21 05:53] LABS: Alanine Aminotransferase 24 U/L (12-78); Albumin 2.6 g/dL (3.4-5.0); Anion Gap 6 meq/L (5-15); Aspartate Aminotransferase 49 U/L (15-37); Blood Urea Nitrogen 9 mg/dL (7-18); Calcium 7.7 mg/dL (8.5-10.1); Carbon Dioxide 32.5 meq/L (21.0-32.0); Chloride 105 meq/L (98-107); Glomerular Filtration Rate Greater Than 89 mL/min (>89); Glucose,Random 129 mg/dL (74-106); Potassium 3.6 meq/L (3.5-5.1); Sodium 143 meq/L (136-145)
[2018-09-21 05:56] LABS: Alkaline Phosphatase 54 U/L (45-117); Total Protein 5.5 g/dL (6.4-8.2)
[2018-09-21] MEDS: Lisinopril 20 MG Tablet PO SCH (09:03)
[2018-09-21] MEDS: Metoprolol Tartrate 25 MG Tablet PO SCH ×2 (09:03→21:23)
[2018-09-21] MEDS: Gabapentin 300 MG Capsule PO SCH ×3 (09:03→17:37)
[2018-09-21] MEDS: Ezetimibe 10 MG Tablet PO SCH (09:03)
[2018-09-21] MEDS: Lisdexamfetamine 30 MG Capsule PO SCH (09:04)
[2018-09-21] MEDS: Senna/Docusate Sodium 8.6/50 MG Tablet PO SCH ×2 (09:04→21:23)
--- NOTE | 2018-09-21 09:51 | P.PN ---
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 09/21: Physical Exam Vital signs: Vital Signs 09/20/18 10:49 09/20/18 11:53 09/20/18 12:00 Temperature 98.2 F Pulse Rate 101 H Respiratory Rate 18 18 20 Blood Pressure 125/83 Pulse Oximetry 98 09/20/18 16:00 09/20/18 20:00 09/21/18 00:00 Temperature 98.2 F 98.5 F 98.3 F Pulse Rate 99 H 101 H 102 H Respiratory Rate 20 20 20 Blood Pressure 132/70 124/77 113/59 L Pulse Oximetry 97 97 97 09/21/18 04:53 09/21/18 08:00 Temperature 99.1 F 100 F H Pulse Rate 80 84 Respiratory Rate 18 18 Blood Pressure 106/55 L 121/66 Pulse Oximetry 96 98 Intake & Output 09/20/18 09/21/18 09/21/18 18:59 06:59 18:59 Intake Total 600 / 600 1960 / 1960 Output Total 700 / 700 Balance 600 / 600 1260 / 1260 Intake: IV 1000 / 1000 NS Inj 1,000 ML @ 100 mls/hr IV 1000 / 1000 .CONT .Q10H MICHELLE Rx#:[id number] Oral 600 / 600 960 / 960 Output: Urine 550 / 550 Wound Drainage 150 / 150 # 1 Medial Back Marbin 150 / 150 Other: # Voids 3 1 Date of Last Bowel Movement 09/18/18 09/18/18 09/18/18 # Bowel Movements 0 Narrative: GENERAL: NAD, A&Ox3 HEAD: Normocephalic. NECK: Supple, trachea midline. No lymphadenopathy. EYES: No scleral icterus. No injection or drainage. CARDIOVASCULAR: Regular rate and rhythm without murmurs, gallops, or rubs. RESPIRATORY: Breath sounds equal bilaterally. No accessory muscle use. GASTROINTESTINAL: Abdomen soft, non-tender, nondistended. MUSCULOSKELETAL: No cyanosis, or edema. SETH drain is in place at back. SKIN: Warm and dry. NEURO: No focal neurological deficits. - Urinary Catheter Management Indwelling Urethral Catheter Cath placed during this visit: yes Reason for continuing: Hourly intake/output Insertion date: 09/18/18 Insertion time: 13:30 Results - Labs CBC & Chem 7: 09/21/18 04:22 09/21/18 04:22 Laboratory Results - last 24 hr 09/20/18 09/20/18 09/20/18 11:15 13:25 16:45 WBC RBC Hgb Hct MCV MCH MCHC RDW Plt Count MPV Neut % (Auto) Lymph % (Auto) [place] % (Auto) Eos % (Auto) Baso % (Auto) Neut # (Auto) Lymph # (Auto) [place] # (Auto) Eos # (Auto) Baso # (Auto) WBC Differential Differential Comment Sodium Potassium Chloride Carbon Dioxide Anion Gap BUN Creatinine Estimated GFR POC Glucose 164 H 193 H Random Glucose Calcium Total Bilirubin AST ALT Alkaline Phosphatase Total Protein Albumin TSH 0.209 L 09/20/18 09/21/18 09/21/18 20:42 04:22 04:22 WBC 8.7 RBC 3.08 L Hgb 10.3 L Hct 29.5 L MCV 96.1 MCH 33.5 MCHC 34.8 RDW 13.2 Plt Count 190 MPV 7.5 Neut % (Auto) 61.9 Lymph % (Auto) 25.3 [place] % (Auto) 9.5 H Eos % (Auto) 2.8 Baso % (Auto) 0.5 Neut # (Auto) 5.4 Lymph # (Auto) 2.2 [place] # (Auto) 0.8 Eos # (Auto) 0.2 Baso # (Auto) 0.0 WBC Differential . Differential Comment Auto diff final Sodium 143 Potassium 3.6 Chloride 105 Carbon Dioxide 32.5 H Anion Gap 6 BUN 9 Creatinine 0.87 Estimated GFR Greater than 89 POC Glucose 119 H Random Glucose 129 H Calcium 7.7 L Total Bilirubin 0.3 AST 49 H ALT 24 Alkaline Phosphatase 54 Total Protein 5.5 L Albumin 2.6 L TSH - Imaging Lumbar Spine X-Ray 09/18/18 00:00 CONCLUSION: L3/L4 and L4/L5 fusion without acute abnormality demonstrated. Chest X-Ray 09/19/18 00:00 CONCLUSION: Developing lateral left lung base infiltrate - Procedures L3-4, L4-L5 laminectomy, interbody Arthrodhesis using PEEK cage and autologous bone graft, L3-4, L4-L5 instrumental fixation using transpedicular screws and rods, L3-4, L4-L5 posterolateral fusion using autologous bone graft and demineralized bone matrix. Microsurgical dissection (09/18/18) Assessment and Plan - Plan 53-year-old male admitted secondary to lumbar stenosis, for laminectomy and fusion Healing well as far. Continue pain management. Continue physical therapy. Monitor for improvement. Lumbar stenosis s/p L3-L5 laminectomy and fusion 09/[address] 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 Chronic pain Parasomnia Chronic neuropathy Continue gabapentin 300 mg p.o. 3 times daily ADHD Continue Vyvanse 60 mg po daily Suspected obstructive sleep apnea Bipap at night Weight loss encouraged Follow-up with pulmonology as an outpatient for outpatient sleep study. Hypertension Continue metoprolol 25 mg p.o. twice daily. Continue lisinopril 20 mg p.o. daily. Continue HCTZ 12.5 mg p.o. daily Hyperlipidemia Continue pravastatin 40 mg p.o. daily Continue Zetia 10 mg p.o. daily Obesity Regular diet Acute hyperglycemia Likely related to steroid Follow blood sugars Insulin sliding scale DVT prophylaxis SCDs
--- NOTE | 2018-09-21 11:11 | P.PNNS ---
Subjective Interval history: Painful. Drain w/ 150/shift last 2-- will keep another day. COREMAKER FLOOR weaned to off , taking flexeril and oxycodone. Painful even up to bathroom. Physical Exam Vital signs: Vital Signs 09/20/18 11:53 09/20/18 12:00 09/20/18 16:00 Temperature 98.2 F 98.2 F Pulse Rate 101 H 99 H Respiratory Rate 18 20 20 Blood Pressure 125/83 132/70 Pulse Oximetry 98 97 09/20/18 20:00 09/21/18 00:00 09/21/18 04:53 Temperature 98.5 F 98.3 F 99.1 F Pulse Rate 101 H 102 H 80 Respiratory Rate 20 20 18 Blood Pressure 124/77 113/59 L 106/55 L Pulse Oximetry 97 97 96 09/21/18 08:00 Temperature 100 F H Pulse Rate 84 Respiratory Rate 18 Blood Pressure 121/66 Pulse Oximetry 98 Intake & Output 09/20/18 09/21/18 09/21/18 18:59 06:59 18:59 Intake Total 600 / 600 1960 / 1960 Output Total 700 / 700 Balance 600 / 600 1260 / 1260 Intake: IV 1000 / 1000 NS Inj 1,000 ML @ 100 mls/hr IV 1000 / 1000 .CONT .Q10H MICHELLE Rx#:[id number] Oral 600 / 600 960 / 960 Output: Urine 550 / 550 Wound Drainage 150 / 150 # 1 Medial Back Marbin 150 / 150 Other: # Voids 3 1 Date of Last Bowel Movement 09/18/18 09/18/18 09/18/18 # Bowel Movements 0 Narrative: A&O x 3 CN II-intact Motor 5/5 UE/LE Back brace in place SETH drain serosang - Urinary Catheter Management Indwelling Urethral Catheter Cath placed during this visit: yes Reason for continuing: Hourly intake/output Insertion date: 09/18/18 Insertion time: 13:30 Assessment and Plan - Plan POD 2 L3-4, L4-L5 laminectomy, interbody arthrodhesis using PEEK cage and autologous bone graft, L3-4, L4-L5 instrumental fixation using transpedicular screws and rods, L3-4, L4-L5 posterolateral fusion using autologous bone graft and demineralized bone matrix. Microsurgical dissection (09/18/18) cont COREMAKER FLOOR for postoperative pain control, add Flexeril, cont Lortab prn, cont Neurontin Dr. Donohue request pulmonary eval for sleep apnea, pulmonary eval appreciated SCDs and TEDs for dvt proph protonix for GI prophylaxis cont SETH draining, monitor output TLSO, PT, mobilize
[2018-09-21] MEDS: Sod Chloride 0.9% Inj 1,000 ML IV.SIG SCH (13:52)
--- NOTE | 2018-09-21 17:04 | P.PN ---
Subjective Interval history: ALERT NO SOB Physical Exam Vital signs: Vital Signs 09/20/18 20:00 09/21/18 00:00 09/21/18 04:53 Temperature 98.5 F 98.3 F 99.1 F Pulse Rate 101 H 102 H 80 Respiratory Rate 20 20 18 Blood Pressure 124/77 113/59 L 106/55 L Pulse Oximetry 97 97 96 09/21/18 08:00 09/21/18 12:00 Temperature 100 F H 98 F Pulse Rate 84 86 Respiratory Rate 18 18 Blood Pressure 121/66 127/80 Pulse Oximetry 98 98 Intake & Output 09/20/18 09/21/18 09/21/18 18:59 06:59 18:59 Intake Total 600 / 600 1960 / 1960 Output Total 700 / 700 Balance 600 / 600 1260 / 1260 Intake: IV 1000 / 1000 NS Inj 1,000 ML @ 100 mls/hr IV 1000 / 1000 .CONT .Q10H MICHELLE Rx#:[id number] Oral 600 / 600 960 / 960 Output: Urine 550 / 550 Wound Drainage 150 / 150 # 1 Medial Back Marbin 150 / 150 Other: # Voids 3 1 Date of Last Bowel Movement 09/18/18 09/18/18 09/18/18 # Bowel Movements 0 Narrative: A&O x 3 CN II-intact Motor 5/5 UE/LE Back brace in place SETH drain serosang - Urinary Catheter Management Indwelling Urethral Catheter Cath placed during this visit: yes Reason for continuing: Hourly intake/output Insertion date: 09/18/18 Insertion time: 13:30 Results - Labs CBC & Chem 7: 09/21/18 04:22 09/21/18 04:22 Laboratory Results - last 24 hr 09/20/18 09/21/18 09/21/18 20:42 04:22 04:22 WBC 8.7 RBC 3.08 L Hgb 10.3 L Hct 29.5 L MCV 96.1 MCH 33.5 MCHC 34.8 RDW 13.2 Plt Count 190 MPV 7.5 Neut % (Auto) 61.9 Lymph % (Auto) 25.3 [place] % (Auto) 9.5 H Eos % (Auto) 2.8 Baso % (Auto) 0.5 Neut # (Auto) 5.4 Lymph # (Auto) 2.2 [place] # (Auto) 0.8 Eos # (Auto) 0.2 Baso # (Auto) 0.0 WBC Differential . Differential Comment Auto diff final Sodium 143 Potassium 3.6 Chloride 105 Carbon Dioxide 32.5 H Anion Gap 6 BUN 9 Creatinine 0.87 Estimated GFR Greater than 89 POC Glucose 119 H Random Glucose 129 H Calcium 7.7 L Total Bilirubin 0.3 AST 49 H ALT 24 Alkaline Phosphatase 54 Total Protein 5.5 L Albumin 2.6 L 09/21/18 11:45 WBC RBC Hgb Hct MCV MCH MCHC RDW Plt Count MPV Neut % (Auto) Lymph % (Auto) [place] % (Auto) Eos % (Auto) Baso % (Auto) Neut # (Auto) Lymph # (Auto) [place] # (Auto) Eos # (Auto) Baso # (Auto) WBC Differential Differential Comment Sodium Potassium Chloride Carbon Dioxide Anion Gap BUN Creatinine Estimated GFR POC Glucose 125 H Random Glucose Calcium Total Bilirubin AST ALT Alkaline Phosphatase Total Protein Albumin - Procedures L3-4, L4-L5 laminectomy, interbody Arthrodhesis using PEEK cage and autologous bone graft, L3-4, L4-L5 instrumental fixation using transpedicular screws and rods, L3-4, L4-L5 posterolateral fusion using autologous bone graft and demineralized bone matrix. Microsurgical dissection (09/18/18) Assessment and Plan - Plan SDB , CARMELO SUSPECT HTN HLD POST LAMINECTOMY PLAN NPSG POST D/C CHECK PFT TSH
[2018-09-22] MEDS ORDERED: Sodium Chloride 0.9% 2 ML Flush PRN IV.FLUSH (04:48)
[2018-09-22] MEDS: Insulin NovoLOG Aspart Correctional Sugar Inj SQ SCH ×4 (08:37→20:45)
[2018-09-22] MEDS: Lisinopril 20 MG Tablet PO SCH (08:39)
[2018-09-22] MEDS: Gabapentin 300 MG Capsule PO SCH ×3 (08:39→19:52)
[2018-09-22] MEDS: Senna/Docusate Sodium 8.6/50 MG Tablet PO SCH ×2 (08:39→20:43)
[2018-09-22] MEDS: Sodium Chloride 0.9% 2 ML Flush BID IV.FLUSH SCH ×2 (08:40→20:46)
[2018-09-22] MEDS: Metoprolol Tartrate 25 MG Tablet PO SCH ×2 (08:40→20:43)
[2018-09-22] MEDS: Lisdexamfetamine 30 MG Capsule PO SCH (08:40)
[2018-09-22] MEDS: Ezetimibe 10 MG Tablet PO SCH (08:40)
--- NOTE | 2018-09-22 11:05 | P.PNIM ---
Subjective Interval history: Patient seen and examined this morning. Afebrile vital signs stable. Patient reports that he just finished walking the halls and is having some mild back pain but otherwise doing well. He still has a bulb drain in place with some mild amount of serosanguineous fluid. Nurse reports that it will be removed today. Otherwise patient denies any complaints or issues and he is looking forward to getting out of the hospital soon Physical Exam Vital signs: Vital Signs 09/21/18 12:00 09/21/18 16:00 09/21/18 20:01 Temperature 98 F 97.7 F 97.7 F Pulse Rate 86 83 91 H Respiratory Rate 18 18 19 Blood Pressure 127/80 100/57 L 110/63 Pulse Oximetry 98 97 97 09/21/18 23:23 09/22/18 08:00 Temperature 98.7 F 98.1 F Pulse Rate 79 85 Respiratory Rate 18 16 Blood Pressure 98/53 L 122/77 Pulse Oximetry 97 97 Intake & Output 09/21/18 09/22/18 09/22/18 18:59 06:59 18:59 Intake Total 960 / 960 Output Total 60 60 515 / 515 Balance -60 / -60 445 / 445 Intake: Oral 960 / 960 Output: Urine 500 / 500 Wound Drainage 15 # 1 Medial Back Marbin Other: Date of Last Bowel Movement 09/21/18 09/21/18 # Bowel Movements 1 Narrative: GENERAL: NAD, A&Ox3 HEAD: Normocephalic. NECK: Supple, trachea midline. No lymphadenopathy. EYES: No scleral icterus. No injection or drainage. CARDIOVASCULAR: Regular rate and rhythm without murmurs, gallops, or rubs. RESPIRATORY: Breath sounds equal bilaterally. No accessory muscle use. GASTROINTESTINAL: Abdomen soft, non-tender, nondistended. MUSCULOSKELETAL: No cyanosis, or edema. SETH drain is in place at back. Back brace in place SKIN: Warm and dry. NEURO: No focal neurological deficits. - Urinary Catheter Management Indwelling Urethral Catheter Cath placed during this visit: yes Reason for continuing: Hourly intake/output Insertion date: 09/18/18 Insertion time: 13:30 Results - Labs CBC & Chem 7: 09/21/18 04:22 09/21/18 04:22 Laboratory Results - last 24 hr 09/21/18 09/21/18 09/22/18 11:45 21:20 08:33 POC Glucose 125 H 90 99 - Procedures L3-4, L4-L5 laminectomy, interbody Arthrodhesis using PEEK cage and autologous bone graft, L3-4, L4-L5 instrumental fixation using transpedicular screws and rods, L3-4, L4-L5 posterolateral fusion using autologous bone graft and demineralized bone matrix. Microsurgical dissection (09/18/18) Assessment and Plan - Assessment (1) S/P laminectomy with spinal fusion Code(s): Z98.1 - Arthrodesis status Status: Acute - Plan 53-year-old male admitted secondary to lumbar stenosis, for laminectomy and fusion Healing well as far. Continue pain management. Continue physical therapy. Monitor for improvement. Lumbar stenosis s/p L3-L5 laminectomy and fusion 09/[address] 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 Chronic pain Parasomnia Chronic neuropathy Continue gabapentin 300 mg p.o. 3 times daily ADHD Continue Vyvanse 60 mg po daily Suspected obstructive sleep apnea Bipap at night Weight loss encouraged Follow-up with pulmonology as an outpatient for outpatient sleep study. Hypertension Continue metoprolol 25 mg p.o. twice daily. Continue lisinopril 20 mg p.o. daily. Continue HCTZ 12.5 mg p.o. daily Hyperlipidemia Continue pravastatin 40 mg p.o. daily Continue Zetia 10 mg p.o. daily Obesity Regular diet Acute hyperglycemia Likely related to steroid Follow blood sugars Insulin sliding scale DVT prophylaxis SCDs Code Status: Full code Discussed Condition With: With case monitor Planning: Pending clearance from neurosurgery and pulmonology
--- NOTE | 2018-09-22 13:57 | P.PNNS ---
Subjective Interval history: Pain improved walking with PT this morning, not ready to go home Physical Exam Vital signs: Vital Signs 09/21/18 16:00 09/21/18 20:01 09/21/18 23:23 Temperature 97.7 F 97.7 F 98.7 F Pulse Rate 83 91 H 79 Respiratory Rate 18 19 18 Blood Pressure 100/57 L 110/63 98/53 L Pulse Oximetry 97 97 97 09/22/18 08:00 09/22/18 12:00 Temperature 98.1 F 98.4 F Pulse Rate 85 101 H Respiratory Rate 16 16 Blood Pressure 122/77 114/61 Pulse Oximetry 97 98 Intake & Output 09/21/18 09/22/18 09/22/18 18:59 06:59 18:59 Intake Total 960 / 960 Output Total 60 60 515 / 515 Balance -60 / -60 445 / 445 Intake: Oral 960 / 960 Output: Urine 500 / 500 Wound Drainage 15 # 1 Medial Back Marbin Other: Date of Last Bowel Movement 09/21/18 09/21/18 # Bowel Movements 1 Narrative: A&O x 3 CN II-XII intact Motor 5/5 UE/LE Drain out Incision c/d/i - Urinary Catheter Management Indwelling Urethral Catheter Cath placed during this visit: yes Reason for continuing: Hourly intake/output Insertion date: 09/18/18 Insertion time: 13:30 Assessment and Plan - Plan POD 4 L3-4, L4-L5 laminectomy, interbody arthrodhesis using PEEK cage and autologous bone graft, L3-4, L4-L5 instrumental fixation using transpedicular screws and rods, L3-4, L4-L5 posterolateral fusion using autologous bone graft and demineralized bone matrix. Microsurgical dissection (09/18/18) d/c SETH drain. mobilize. Neurontin, flexeril, lortab (10) TLSO, PT, mobilize
[2018-09-23 08:39] VITALS: RESP 16
[2018-09-23] MEDS: Lisdexamfetamine 30 MG Capsule PO SCH (09:05)
[2018-09-23] MEDS: Ezetimibe 10 MG Tablet PO SCH (09:06)
[2018-09-23] MEDS: Metoprolol Tartrate 25 MG Tablet PO SCH (09:06)
[2018-09-23] MEDS: Lisinopril 20 MG Tablet PO SCH (09:06)
[2018-09-23] MEDS: Gabapentin 300 MG Capsule PO SCH ×2 (09:06→13:15)
[2018-09-23] MEDS: Senna/Docusate Sodium 8.6/50 MG Tablet PO SCH (09:06)
[2018-09-23] MEDS: Sodium Chloride 0.9% 2 ML Flush BID IV.FLUSH SCH (09:07)
--- NOTE | 2018-09-23 09:39 | P.PN ---
Subjective Interval history: Follow-up for lumbar stenosis status post laminectomy/fusion, HTN, suspected CARMELO. Patient is seen sitting upright in bedside chair. Reports continued back pain, does get relief with pain medications. Reports the brace feeling uncomfortable. He otherwise denies any fever/chills, headache, lightheadedness , chest pain, shortness of breath, or abdominal complaints. He states he is getting around okay with his walker. He feels ready to go home. He has been cleared by neurosurgery for discharge today. Physical Exam Vital signs: Vital Signs 09/22/18 12:00 09/22/18 16:00 09/22/18 17:34 Temperature 98.4 F 98.3 F Pulse Rate 101 H 102 H Respiratory Rate 16 16 Blood Pressure 114/61 130/86 Pulse Oximetry 98 99 99 09/22/18 20:00 09/23/18 00:00 09/23/18 08:00 Temperature 97.9 F 98.1 F 97.9 F Pulse Rate 95 H 87 87 Respiratory Rate 18 18 16 Blood Pressure 111/56 L 104/55 L 105/55 L Pulse Oximetry 98 96 98 Intake & Output 09/22/18 09/23/18 09/23/18 18:59 06:59 18:59 Intake Total 720 / 720 120 / 120 Output Total 175 / 175 Balance 545 / 545 120 / 120 Weight 101.6 kg Intake: Oral 720 / 720 120 / 120 Output: Urine 175 / 175 Other: # Voids 2 5 Date of Last Bowel Movement 09/22/18 09/22/18 # Bowel Movements 1 1 Narrative: GENERAL: Well-nourished, well-developed pleasant middle-aged male patient in [facility]. SKIN: Warm and dry. No rash. HEENT: Normocephalic. Atraumatic. Pupils equal and round. Mucous membranes pink and moist. CARDIOVASCULAR: Regular rate and rhythm. No murmur appreciated. RESPIRATORY: No accessory muscle use. Clear to auscultation. Breath sounds equal bilaterally. GASTROINTESTINAL: Abdomen soft, non-tender, nondistended. Normoactive bowel sounds x4. MUSCULOSKELETAL: No obvious deformities. Extremities without clubbing, cyanosis , or edema. TLSO brace in place. NEUROLOGICAL: Awake and alert. No obvious cranial nerve deficits. Moving all extremities spontaneously. Normal speech. PSYCHIATRIC: Appropriate mood and affect; insight and judgment normal. - Urinary Catheter Management Indwelling Urethral Catheter Cath placed during this visit: yes Reason for continuing: Hourly intake/output Insertion date: 09/18/18 Insertion time: 13:30 Results - Labs CBC & Chem 7: 09/21/18 04:22 09/21/18 04:22 Laboratory Results - last 24 hr 09/22/18 09/22/18 17:30 19:33 POC Glucose 172 H 153 H - Imaging Lumbar Spine X-Ray 09/18/18 00:00 CONCLUSION: L3/L4 and L4/L5 fusion without acute abnormality demonstrated. Chest X-Ray 09/19/18 00:00 CONCLUSION: Developing lateral left lung base infiltrate - Procedures L3-4, L4-L5 laminectomy, interbody Arthrodhesis using PEEK cage and autologous bone graft, L3-4, L4-L5 instrumental fixation using transpedicular screws and rods, L3-4, L4-L5 posterolateral fusion using autologous bone graft and demineralized bone matrix. Microsurgical dissection (09/18/18) Assessment and Plan - Assessment (1) S/P laminectomy with spinal fusion Code(s): Z98.1 - Arthrodesis status Status: Acute - Plan 53-year-old male admitted secondary to lumbar stenosis, for laminectomy and fusion Lumbar stenosis s/p L3-L5 laminectomy and fusion 09/[address] 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 Donohue today 09/23, outpatient f/up Chronic pain Parasomnia Chronic neuropathy Continue gabapentin 300 mg p.o. 3 times daily ADHD Continue Vyvanse 60 mg po daily Suspected obstructive sleep apnea Bipap at night Weight loss encouraged Follow-up with pulmonology Dr. Christianson for outpatient sleep study and PFTs O2 sat stable on room air Hypertension Continue metoprolol 25 mg p.o. twice daily. Continue lisinopril 20 mg p.o. daily. Continue HCTZ 12.5 mg p.o. daily BP well controlled Hyperlipidemia Continue pravastatin 40 mg p.o. daily Continue Zetia 10 mg p.o. daily Obesity Regular diet Acute hyperglycemia Likely related to steroid Follow blood sugars Insulin sliding scale HgbA1c 6.2, recommend diet control and outpatient f/up for repeat HgbA1c in 3 months DVT prophylaxis SCDs Discharge Planning: The patient is medically stable for discharge. F/up with Dr. Donohue, Dr. Gilmore, and Dr. Christianson.
--- NOTE | 2018-09-23 10:14 | P.DS ---
Date of admission: 09/18/18 10:39 Primary care physician: Aung Gilmore MD Brief History from admission: Mr Resendez is a 53 year-old male who presented with intractable mechanical back pain and del evidence of L4 and L5 lower extremity radiculopathy. He failed maximum nonsurgical management including multiple modalities of conservative treatment as well as pain management interventions by an interventional pain specialist. A surgical decompression and arthrodhesis were indicated as a last resort. DS: Summary Hospital Course: Mr. Baptiste underwent L3-4, L4-L5 laminectomy, interbody arthrodhesis using PEEK cage and autologous bone graft, L3-4, L4-L5 instrumental fixation using transpedicular screws and rods, L3-4, L4-L5 posterolateral fusion using autologous bone graft and demineralized bone matrix. Microsurgical dissection for Lumbar degenerative disk disease with secondary spinal stenosis on 09/18/18. - Time Spent with Patient Total time spent providing and/or coordinating discharge services: - Quality: VTE Deep Vein Thrombosis/Pulmonary Embolism Present on Admission: No Exam Vital signs: Vital Signs 09/22/18 12:00 09/22/18 16:00 09/22/18 17:34 Temperature 98.4 F 98.3 F Pulse Rate 101 H 102 H Respiratory Rate 16 16 Blood Pressure 114/61 130/86 Pulse Oximetry 98 99 99 09/22/18 20:00 09/23/18 00:00 09/23/18 08:00 Temperature 97.9 F 98.1 F 97.9 F Pulse Rate 95 H 87 87 Respiratory Rate 18 18 16 Blood Pressure 111/56 L 104/55 L 105/55 L Pulse Oximetry 98 96 98 Intake & Output 09/22/18 09/23/18 09/23/18 18:59 06:59 18:59 Intake Total 720 / 720 120 / 120 Output Total 175 / 175 Balance 545 / 545 120 / 120 Weight 101.6 kg Intake: Oral 720 / 720 120 / 120 Output: Urine 175 / 175 Other: # Voids 2 5 Date of Last Bowel Movement 09/22/18 09/22/18 # Bowel Movements 1 1 Results Procedures completed during hospitalization: L3-4, L4-L5 laminectomy, interbody Arthrodhesis using PEEK cage and autologous bone graft, L3-4, L4-L5 instrumental fixation using transpedicular screws and rods, L3-4, L4-L5 posterolateral fusion using autologous bone graft and demineralized bone matrix. Microsurgical dissection (09/18/18) Labs on day of discharge: Labs from last 24 hours 09/22/18 09/22/18 19:33 17:30 POC Glucose 153 H 172 H - Impressions ITS Impressions Lumbar Spine X-Ray 09/18/18 00:00 CONCLUSION: L3/L4 and L4/L5 fusion without acute abnormality demonstrated. Chest X-Ray 09/19/18 00:00 CONCLUSION: Developing lateral left lung base infiltrate Discharge Plan - Discharge Disposition Patient Disposition: Discharge Home - Discharge Condition Condition: Stable - Discharge Order Discharge Orders: Discharge Order (Routine); Ordered 09/23/18 Ordered By: Anika Munoz - Discharge Details Anticipated Discharge Date: 09/23/18 - Physicians Team Primary Care Provider: Aung Gilmore Attending Provider: Gio Donohue Other Providers: Fernando Harris MD ; Matthew Damon MD - Rxs /Orders / Referrals /Forms Prescriptions: Continue ezetimibe 10 mg Tablet 10 mg PO DAILY gabapentin 300 mg Capsule 300 mg PO TID hydrocodone-acetaminophen 7.5-325 mg Tablet 1 tab PO Q4H PRN (Reason: Pain) lisdexamfetamine [Vyvanse] 60 mg Capsule 60 mg PO DAILY lisinopril-hydrochlorothiazide 20-12.5 mg Tablet 1 tab PO DAILY metoprolol tartrate 25 mg Tablet 25 mg PO BID pravastatin 40 mg Tablet 40 mg PO DAILY Discontinued naproxen 250 mg Tablet 250 mg PO PRN PRN (Reason: Pain) Ambulatory Orders / Order Sets / DME: Walker With Front Wheels (1 each) (Routine) Location: Determined by Patient Ordered By: Juan Mayes Hemoglobin A1C (Routine) Timeframe: 3 Months Location: Determined by Patient Ordered By: Sruthi Hudson Referrals: Aung Gilmore MD [Primary Care Provider] - See Instructions Meghan Christianson MD [Physician] - See Instructions (Follow up with pulmonology Dr. Chrisitanson for outpatient sleep study and pulmonary function tests. ) - Discharge Instructions Patient Printed Instructions: Hydrocodone/Acetaminophen (By mouth), Constipation (DC), Laminectomy (DC), How to Choose and Use a Walker (GEN), Pain Management After Surgery (DC), Pain Management After Surgery (GEN), How to Transfer a Person Safely (DC)
[2018-09-23] MEDS: Insulin NovoLOG Aspart Correctional Sugar Inj SQ SCH (13:04)
[2018-09-23 17:34] VITALS: BP 120/75; PULSE 111; TEMP 98.2; O2SAT 98
== END 2018-09-23 15:24 | disposition home or self-care (01) ==
LOC: HSDI 10:39 → N03 20:48 → N06 09-19 17:20
PROVIDERS: ADMIT Neurological Surgery; ATTEND Neurological Surgery